=== PATIENT | female | born 1930 | race African-American/Black ===

== ENCOUNTER 2016-07-25 15:02 | Emergency (ER) | payer MEDICARE, BC, OTHER ==
--- NOTE | ~2016-07-25 | HP ---
History And Physical [id number] [place]. [address] NAME: MG GALLOWAY : 28 STATUS : ADM IN [facility]#: [id number] AGE: 85 ADM/REG DATE : 07/25/16 MR#: [id number] REPORT SERV DATE: 07/25/16 DICTATED BY: DATE: REPORT STATUS : Draft TRANSCRIBED BY: MODL DATE: 07/25/16 DATE OF ADMISSION: 07/25/2016 CHIEF COMPLAINT: Shortness of breath. HISTORY OF PRESENT ILLNESS: Ms Galloway is an 85-year-old, black female with end-stage renal disease, dialyzes Wednesday, Wednesday, Wednesday at [facility]. She states that Wednesday morning, she awoke short of breath, went to her dialysis session. They put her on some oxygen and her shortness of breath improved. She was actually a little better and Wednesday, but then awoke this morning with increased shortness of breath, called her daughter and felt as though she could not breathe. The EMS was called and she was short of breath. On their arrival, they placed her on 3 L of oxygen, gave her breathing treatment with improvement. When she gets to the emergency department, she does have some pulmonary edema. She also had a blood pressure in the 200s. She is known to have diastolic heart failure. Her daughter states that she has not been eating as much in the evenings and may have lost some weight. She has not missed any dialysis treatments. No fevers. No cough. No congestion. Given this, she is going to be admitted for further evaluation and treatment. She denies any chest pain, tightness, or pressure. PAST MEDICAL HISTORY: End-stage renal disease, hypertension, breast cancer, diastolic heart failure, hyperlipidemia, anemia, and dementia. FAMILY MEDICAL HISTORY: No end-stage renal disease. SOCIAL HISTORY: She lives with her daughter who is her administrative supervisor. No tobacco, alcohol, or illicit drug use. ALLERGIES: NONE. MEDICATIONS: B-complex vitamin, Coreg, Protonix, lidocaine, Norvasc, magnesium, cinacalcet. REVIEW OF SYSTEMS: A 12-point review of systems obtained, negative with the exception of HPI. PHYSICAL EXAMINATION: VITAL SIGNS: Temp 98, blood pressure 204/80, pulse 96, respiratory rate 22, O2 saturation is 93% on 3 L. GENERAL: This is a pleasant, cooperative, black female. She is awake, alert, and oriented, in no acute distress. Answers questions appropriately. HEENT: Normocephalic, atraumatic. Conjunctivae clear. Sclerae anicteric. Oral mucosa is moist. 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 I do not see any neck vein distention. No lymphadenopathy. RESPIRATIONS: She has crackles bilaterally, left greater than right. HEART: Her heart rate is regular. She does have a systolic murmur. No rub or gallop. ABDOMEN: Soft and nontender. Bowel sounds active. No masses. No hepatosplenomegaly. No History And Physical [address] [address] NAME: MG GALLOWAY : 28 STATUS : ADM IN [facility]#: [id number] AGE: 85 ADM/REG DATE : 07/25/16 MR#: [id number] REPORT SERV DATE: 07/25/16 DICTATED BY: DATE: REPORT STATUS : Draft TRANSCRIBED BY: MODL DATE: 07/25/16 bruits. No CVA tenderness. BACK: Within normal limits. EXTREMITIES: No edema, cyanosis, or clubbing. SKIN: Warm, dry, and intact. No unusual rashes or skin lesions. AV fistula to the left upper arm with positive thrill and bruit. PERTINENT LABORATORY DATA AND X-RAY FINDINGS: Chest x-ray with edema. WBCs 14,000, H and H 11 and 36, platelets 228,000. Sodium 137, potassium 4.2, chloride 97, CO2 of 26, BUN of 19, creatinine 5.8, and albumin 3.2. LFTs normal. BNP of 2253. IMPRESSION: 1. Shortness of breath. 2. Pulmonary edema. 3. End-stage renal disease, Wednesday, Wednesday, and Wednesday at [facility]. 4. Accelerated hypertension. 5. History of diastolic heart failure. 6. Right pleural effusion. 7. Dementia. 8. Leukocytosis. PLAN: Admit and we will go ahead and dialyze her today and challenge weight. She is going to be on supplemental O2. Watch overnight very closely. I will recheck a chest x-ray in the morning. Continue usual medicines as appropriate. Follow closely. Anticipate that if she has improved with volume removal, she may be discharged tomorrow versus Wednesday after dialysis. If not, will need further workup, which would include an echocardiogram. Further orders and recommendations pending clinical course. GALILEO/MODL FROYLAN Mae / [id number]
[~2016-07-25 15:02] MED LIST: ARICEPT5 PO; ASA5GR PO; ASABAYER PO; CADUET10 MG/20 M TOP; CAT1 PO; CATAPRES2 TOP; CHERATUSSIN OR; CIP5 PO; COREG12 PO; COREG25 PO; DIOVAN320 MG PO; EMLA TOP; FL250 PO; FLAG500TAB PO; LIPITOR20 PO; LONITEN10 PO; LONITEN2.5 PO; LOP100 PO; LOP50 PO; MEGACEUDL PO; NOLV10 PO; NORV10 PO; NORV5 PO; P20 PO; PREV30 PO; PROTONIX PO; PROTONIXIV IV; QUESTRAN4 GM OR; QUESTRAN4 GM PO; RENA-VITE PO; RENAGEL PO; RENAL SFTGLS1 MG OR; RENAL SFTGLS1 MG PO; SALAGEN5 M1 OR; SALAGEN5 M1 PO; SENSIPAR30 M1 OR; SENSIPAR30 M1 PO; SENSIPAR30 MG PO; T3 PO; TUMSROLL PO; UNABLE TO RECALL; VANC125UDL PO; VANCOCIN HCL125 MG PO; XALAT OPH; ZOCOR40 PO
[2016-07-25 15:07] LABS: BASOPHILS 0.1 %; BASOPHILS ABSOLUTE 0.02 10/3/uL (0.0-0.16); EOSINOPHILS 0.6 %; EOSINOPHILS ABSOLUTE 0.09 10/3/uL (0.0-0.53); ER CBC TAT 0 Hrs 05 Mins; HEMATOCRIT 36.1 % (36.0-48.0); HEMOGLOBIN 11.3 g/dL (12.0-16.0); IMMATURE GRANULOCYTES 0.3 %; IMMATURE GRANULOCYTES ABSOLUTE 0.05 10/3/uL (0.0-0.11); LYMPHOCYTES 6.2 %; MANUAL DIFF NO %; MEAN CORPUS HGB CONC 31.3 g/dL (32.0-36.0); MEAN CORPUSCULAR HEMOGLOB 29.8 pg (26.0-34.0); MEAN CORPUSCULAR VOLUME 95.3 fL (80-100); MEAN PLATELET VOLUME 11.2 fL (9.2-13.0); MONOCYTES 6.3 %; MONOCYTES ABSOLUTE 0.91 10/3/uL (0.21-1.20); NEUTROPHILS 86.5 %; NEUTROPHILS ABSOLUTE 12.48 10/3/uL (2.02-8.40); PLATELET COUNT 228 10/3/uL (150-400); RBC DISTRIBUTION WIDTH 14.6 % (12.0-16.0); RED CELL COUNT 3.79 10/6/uL (4.0-5.6); WHITE BLOOD CELLS 14.5 10/3/uL (4.5-10.5)
[2016-07-25 15:13] LABS: INTERNATIONAL NORMAL RATI 1.1 UNITS (-); PROTIME (NOT ORD) 14.4 SEC (12.0-14.5)
[2016-07-25 15:23] LABS: ALBUMIN 3.2 G/DL (3.5-5.0); CALCIUM, SERUM 8.8 MG/DL (8.5-10.4); CHLORIDE, SERUM 97 MMOL/L (96-112); CO2 (CARBON DIOXIDE) 26 MMOL/L (24-34); POTASSIUM, SERUM 4.2 MMOL/L (3.5-5.3); SGOT(AST) 12 U/L (5-40); SGPT(ALT) 11 U/L (5-65); SODIUM, SERUM 137 MMOL/L (135-148); TOTAL BILIRUBIN 0.6 MG/DL (0-1.2)
[2016-07-25 15:28] LABS: A/G RATIO 0.7 (0.7-1.9); ALKALINE PHOSPHATASE 116 U/L (45-117); BUN (BLOOD UREA NITROGEN) 19 MG/DL (6-23); CREATININE 5.82 MG/DL (0.55-1.02); GFR AFRICAN AMERICAN 7 ML/MIN (>=60); GFR NON AFRICAN AMERICAN 6 ML/MIN (>=60); GLOBULIN 4.7 G/DL (2.5-4.1); GLUCOSE, SERUM 107 MG/DL (60-99); TOTAL PROTEIN 7.9 G/DL (6.0-8.5)
[2016-07-25] MEDS ORDERED: RENAL SFTGLS1 MG PO (15:50)
[2016-07-25] MEDS ORDERED: COREG12 PO (15:50)
[2016-07-25] MEDS ORDERED: PILOCARPINE (15:51)
[2016-07-25] MEDS ORDERED: PROTONIX PO (15:51)
[2016-07-25] MEDS ORDERED: LIDO5OINT TOP (15:52)
[2016-07-25] MEDS ORDERED: NORVASC (15:52)
[2016-07-25] MEDS ORDERED: SENSIPAR30 M1 PO (15:53)
[2016-07-25] MEDS ORDERED: MAGNESIUM (15:53)
[2016-07-25] MEDS ORDERED: *UNABLE1 (15:53)
[2016-07-26 04:58] LABS: BASOPHILS 0.3 %; BASOPHILS ABSOLUTE 0.03 10/3/uL (0.0-0.16); EOSINOPHILS 1.3 %; EOSINOPHILS ABSOLUTE 0.12 10/3/uL (0.0-0.53); HEMATOCRIT 34.1 % (36.0-48.0); HEMOGLOBIN 10.7 g/dL (12.0-16.0); IMMATURE GRANULOCYTES 0.3 %; IMMATURE GRANULOCYTES ABSOLUTE 0.03 10/3/uL (0.0-0.11); LYMPHOCYTES 14.5 %; LYMPHOCYTES ABSOLUTE 1.38 10/3/uL (0.67-4.30); MEAN CORPUS HGB CONC 31.4 g/dL (32.0-36.0); MEAN CORPUSCULAR HEMOGLOB 29.9 pg (26.0-34.0); MEAN CORPUSCULAR VOLUME 95.3 fL (80-100); MEAN PLATELET VOLUME 11.7 fL (9.2-13.0); MONOCYTES 8.6 %; MONOCYTES ABSOLUTE 0.82 10/3/uL (0.21-1.20); NEUTROPHILS ABSOLUTE 7.13 10/3/uL (2.02-8.40); PLATELET COUNT 240 10/3/uL (150-400); RBC DISTRIBUTION WIDTH 14.5 % (12.0-16.0); RED CELL COUNT 3.58 10/6/uL (4.0-5.6); WHITE BLOOD CELLS 9.5 10/3/uL (4.5-10.5)
[2016-07-26 05:02] LABS: MANUAL DIFF NO %
[2016-07-26 05:06] LABS: CHLORIDE, SERUM 99 MMOL/L (96-112); CO2 (CARBON DIOXIDE) 25 MMOL/L (24-34); GLUCOSE, SERUM 89 MG/DL (60-99); SODIUM, SERUM 138 MMOL/L (135-148)
[2016-07-26 05:07] LABS: BUN (BLOOD UREA NITROGEN) 15 MG/DL (6-23); CREATININE 4.82 MG/DL (0.55-1.02); GFR AFRICAN AMERICAN 9 ML/MIN (>=60); GFR NON AFRICAN AMERICAN 8 ML/MIN (>=60); PHOSPHORUS, SERUM 3.6 MG/DL (2.5-4.5)
== END 2016-07-26 11:50 | disposition home or self-care (01) ==
LOC: ER 15:02
PROVIDERS: Emergency Medicine; Nurse Practitioner
DX: I13.0 Hypertensive heart and chronic kidney disease with heart failure and stage 1 through stage 4 chronic kidney disease, or unspecified chronic kidney disease (principal); I50.9 Heart failure, unspecified; N18.9 Chronic kidney disease, unspecified; E87.70 Fluid overload, unspecified; R06.00 Dyspnea, unspecified; Z79.899 Other long term (current) drug therapy
CPT/HCPCS: 71010; 80053; 80069; 83880; 85025; 85610; 93005; 96374; 99285; A9270-GY; G0257; J0360

== ENCOUNTER 2016-09-17 21:55 | Emergency (ER) | payer MEDICARE, BC, OTHER ==
[2016-09-17 19:33] LABS: BASOPHILS 0.2 %; BASOPHILS ABSOLUTE 0.03 10/3/uL (0.0-0.16); EOSINOPHILS 1.8 %; EOSINOPHILS ABSOLUTE 0.23 10/3/uL (0.0-0.53); ER CBC TAT 0 Hrs 05 Mins; HEMOGLOBIN 11.9 g/dL (12.0-16.0); IMMATURE GRANULOCYTES 0.9 %; IMMATURE GRANULOCYTES ABSOLUTE 0.11 10/3/uL (0.0-0.11); LYMPHOCYTES 9.4 %; MEAN CORPUS HGB CONC 31.1 g/dL (32.0-36.0); MEAN CORPUSCULAR VOLUME 93.2 fL (80-100); MEAN PLATELET VOLUME 10.6 fL (9.2-13.0); MONOCYTES 13.5 %; MONOCYTES ABSOLUTE 1.73 10/3/uL (0.21-1.20); NEUTROPHILS 74.2 %; PLATELET COUNT 254 10/3/uL (150-400); RBC DISTRIBUTION WIDTH 14.8 % (12.0-16.0); RED CELL COUNT 4.11 10/6/uL (4.0-5.6); WHITE BLOOD CELLS 12.8 10/3/uL (4.5-10.5)
[2016-09-17 19:34] LABS: HEMATOCRIT 38.3 % (36.0-48.0); MANUAL DIFF NO %
[2016-09-17 19:49] LABS: A/G RATIO 0.5 (0.7-1.9); ALBUMIN 3.2 G/DL (3.5-5.0); ALKALINE PHOSPHATASE 80 U/L (45-117); BUN (BLOOD UREA NITROGEN) 23 MG/DL (6-23); CALCIUM, SERUM 10.3 MG/DL (8.5-10.4); CHLORIDE, SERUM 101 MMOL/L (96-112); CO2 (CARBON DIOXIDE) 24 MMOL/L (24-34); GFR AFRICAN AMERICAN 5 ML/MIN (>=60); GFR NON AFRICAN AMERICAN 4 ML/MIN (>=60); GLOBULIN 6.6 G/DL (2.5-4.1); GLUCOSE, SERUM 127 MG/DL (60-99); SGOT(AST) 17 U/L (5-40); SGPT(ALT) 12 U/L (5-65); SODIUM, SERUM 138 MMOL/L (135-148); TOTAL BILIRUBIN 0.5 MG/DL (0-1.2); TOTAL PROTEIN 9.8 G/DL (6.0-8.5)
[~2016-09-17 21:55] MED LIST changes: +*UNABLE1; +LIDO5OINT TOP; +MAGNESIUM; +NORVASC; +PILOCARPINE
== END 2016-09-17 22:45 | disposition home or self-care (01) ==
LOC: ER 21:55
PROVIDERS: Emergency Medicine
DX: R19.7 Diarrhea, unspecified (principal); I12.9 Hypertensive chronic kidney disease with stage 1 through stage 4 chronic kidney disease, or unspecified chronic kidney disease; N18.9 Chronic kidney disease, unspecified; F03.90 Unspecified dementia, unspecified severity, without behavioral disturbance, psychotic disturbance, mood disturbance, and anxiety; Z85.3 Personal history of malignant neoplasm of breast; D64.9 Anemia, unspecified; Z79.899 Other long term (current) drug therapy
CPT/HCPCS: 71010; 80053; 81001; 83605; 83690; 85025; 87040; 87045; 87046; 87046-59; 87493; 87493-59; 87899; 87899-59; 99284; A9270-GY